=== PATIENT | male | born 1970 | race Caucasian/White ===

== ENCOUNTER → 2017-02-25 | Outpatient (REF) ==
[~2017-02-25] MED LIST: ASPIRIN 81M81 MG/TA2 PO; LIPITOR 10MG10 MG PO; NITROSTAT0.4 MG/TAB SL
== END ==
LOC: WSOH 08:40
DX: Z00.00 Encounter for general adult medical examination without abnormal findings (principal)
CPT/HCPCS: G0463

== ENCOUNTER 2020-05-30 08:11 | Emergency (ER) | payer BC ==
[~2020-05-30] VITALS: Ht 180.3 cm; Wt 97.7 kg
[2020-05-30 09:25] VITALS: BP 117/85; PULSE 59
== END 2020-05-30 09:25 | disposition home or self-care (01) ==
LOC: COL.ER 08:11
DX: S29.9XXA Unspecified injury of thorax, initial encounter (principal); R07.89 Other chest pain; E78.5 Hyperlipidemia, unspecified; Z95.9 Presence of cardiac and vascular implant and graft, unspecified; W22.8XXA Striking against or struck by other objects, initial encounter; Y92.828 Other wilderness area as the place of occurrence of the external cause
CPT/HCPCS: A9284

== ENCOUNTER 2021-06-18 17:39 | Emergency (ER) | payer OTHER ==
[~2021-06-18] VITALS: Ht 180.3 cm; Wt 97.3 kg
[2021-06-18 17:47] VITALS: TEMP 98.7
[2021-06-18 18:37] LABS: ALBUMIN 4.3 gm/dL (3.5-5.0); BILIRUBIN,TOTAL 0.9 mg/dL (0.0-1.0); C-REACTIVE PROTEIN 2.2 mg/dL (0.0-0.9); CALCIUM 8.6 mg/dL (8.4-10.2); CREATININE, serum 0.9 (0.66-1.25); POTASSIUM 3.9 mmol/L (3.4-5.0); TOTAL PROTEIN 7.5 gm/dL (6.4-8.2)
[2021-06-18 18:40] LABS: BASO % 0.6 % (0.0-2.0); EOS % 0.6 % (0-4.0); GRAN # 2.9 (1.4-6.5); GRAN % 60.4 % (42.2-75.2); HEMATOCRIT 44.2 % (42.0-52.0); HEMOGLOBIN 14.4 g/dl (13.5-18.0); LYMPH # 1.2 (1.2-3.4); LYMPH % 24.2 % (20.0-51.0); MEAN CELL VOLUME 92 fl (80.0-100.0); MEAN CORPUSCULAR HEMOGLOBIN 30 pg (27.0-31.0); MEAN CORPUSCULAR HGB CONC 33 g/dl (33.0-37.0); MEAN PLATELET VOLUME 11.2 fl (7.4-10.4); MONO # 0.6 (0.1-0.6); MONO % 13.4 % (1.7-9.3); PLATELET COUNT 204 K/mm3 (130-400); RED BLOOD COUNT 4.79 M/mm3 (4.20-5.60); REDCELL DISTRIBUTION WIDTH-CV 11.9 % (11.5-14.5)
[2021-06-18 20:01] LABS: COLLECTION METHOD CLEAN CATCH
[2021-06-18 20:15] LABS: PH 6 (5-8); SQUAMOUS EPITHELIAL None Seen /hpf; URINE APPEARANCE Clear; URINE BACTERIA None Seen /hpf; URINE BILIRUBIN Negative (NEGATIVE); URINE BLOOD Negative (NEGATIVE); URINE COLOR Yellow; URINE GLUCOSE Negative (NEGATIVE); URINE KETONE Negative (NEGATIVE); URINE LEUKOCYTE ESTERASE Negative (NEGATIVE); URINE NITRATE Negative (NEGATIVE); URINE PROTEIN(semi-quant) Negative (NEGATIVE); URINE RBC 0-2 /hpf; URINE UROBILINOGEN Negative (NEGATIVE)
[2021-06-18 20:51] VITALS: BP 133/85; PULSE 82
== END 2021-06-18 20:51 | disposition home or self-care (01) ==
LOC: COL.ER 17:39
PROVIDERS: Nurse Practitioner
DX: U07.1 COVID-19 (principal)
CPT/HCPCS: J7030

== ENCOUNTER 2021-10-02 16:39 | Emergency (ER) | payer OTHER ==
[~2021-10-02] VITALS: Ht 180.3 cm; Wt 102.3 kg
[2021-10-02 17:51] VITALS: TEMP 98.1
[2021-10-02 20:38] LABS: BASO % 0.7 % (0.0-2.0); EOS # 0.2 K/mm3 (0.0-0.7); EOS % 3.3 % (0-4.0); GRAN % 54.8 % (42.2-75.2); HEMATOCRIT 42.8 % (42.0-52.0); HEMOGLOBIN 14.8 g/dl (13.5-18.0); LYMPH # 1.8 K/mm3 (1.2-3.4); LYMPH % 32.7 % (20.0-51.0); MEAN CELL VOLUME 87 fl (80.0-100.0); MEAN CORPUSCULAR HEMOGLOBIN 30 pg (27.0-31.0); MEAN CORPUSCULAR HGB CONC 35 g/dl (33.0-37.0); MEAN PLATELET VOLUME 10.6 fl (7.4-10.4); MONO # 0.4 K/mm3 (0.1-0.6); MONO % 7.9 % (1.7-9.3); PLATELET COUNT 258 K/mm3 (130-400); REDCELL DISTRIBUTION WIDTH-CV 11.7 % (11.5-14.5)
[2021-10-02 21:03] LABS: ALBUMIN 4.5 gm/dL (3.5-5.0); BILIRUBIN,TOTAL 1.1 mg/dL (0.2-1.2); C-REACTIVE PROTEIN 0.09 mg/dL (0.00-0.50); CALCIUM 9.4 mg/dL (8.4-10.2); CREATININE, serum 0.84 mg/dL (0.72-1.25); POTASSIUM 4.2 mmol/L (3.5-4.5); TOTAL PROTEIN 7.4 gm/dL (6.2-8.1)
[2021-10-02] MEDS ORDERED: FLEXERIL 1010 MG/TAB PO (21:19)
[2021-10-02 21:38] VITALS: BP 135/90; PULSE 71
== END 2021-10-02 21:40 | disposition home or self-care (01) ==
LOC: COL.ER 16:39
PROVIDERS: Family Medicine; Nurse Practitioner
DX: M54.2 Cervicalgia (principal); E78.00 Pure hypercholesterolemia, unspecified; Z79.899 Other long term (current) drug therapy